=== PATIENT | female | born 1950 | race Caucasian/White ===

== ENCOUNTER → 2023-05-11 15:54 | Outpatient (REF) | payer MEDICARE, OTHER, SELFPAY | LOC: HWWDC 15:54 | PROVIDERS: ATTENDING PHYSICIAN Obstetrics & Gynecology; FAMILY PHYSICIAN Internal Medicine | DX: Z12.31 Encounter for screening mammogram for malignant neoplasm of breast (principal) | CPT/HCPCS: 77063; 77067 ==

== ENCOUNTER → 2023-09-26 06:30 | Day surgery (SDC) | payer MEDICARE, OTHER, SELFPAY | LOC: GI 06:30 | PROVIDERS: ATTENDING PHYSICIAN Internal Medicine | DX: Z12.11 Encounter for screening for malignant neoplasm of colon (principal); K64.9 Unspecified hemorrhoids; K63.89 Other specified diseases of intestine; D12.3 Benign neoplasm of transverse colon; D12.5 Benign neoplasm of sigmoid colon; Z86.010 Personal history of colon polyps | CPT/HCPCS: 45385; 45380; 88305 ==

== ENCOUNTER 2023-11-24 21:42 | Emergency (ER) | payer MEDICARE, OTHER, SELFPAY ==
[2023-11-24 21:47] VITALS: BP 138/70
--- NOTE | 2023-11-24 22:05 | ED.GENMED ---
History of Present Illness
General
Chief Complaint: Heart Rate Problem
Time Seen by Provider: 11/24/23 22:05
History of Present Illness
History of Present Illness:
TIME OF INITIAL ENCOUNTER: 10:20 PM
HPI: While in the car, the patient had palpitations associated with some lightheadedness. She is compliant with taking Coreg 20 mg extended release twice daily. She had no chest pain. She has a history of Takotsubo cardiomyopathy after scuba
diving a few years ago.
EXAM:
GENERAL: Well appearing in no distress
HEENT: Moist oral mucosa
CARDIOVASCULAR: No murmurs, normal heart rate, regular rhythm, No chest wall tenderness
PULMONARY: No respiratory distress, breath sounds are clear and equal
ABDOMEN: Soft with no peritoneal signs, no tenderness
NEUROLOGIC: Excellent strength all extremities, no coordination deficits
PSYCHIATRIC: Appropriate mental status, normal insight and judgement
EXTREMITIES: Nontender, no edema, moves all extremities equally
SKIN: No rash, no lesions
NUMBER AND COMPLEXITY OF PROBLEMS ADDRESSED AT THE ENCOUNTER
� Chronic conditions affecting care: Dr. Coleman cardiomyopathy, high blood pressure
� Acute Exacerbation and/or Progression of Chronic Illness: This is an acute problem
� Differential Diagnosis includes: PVCs, PACs, atrial dysrhythmia, ventricular dysrhythmia
AMOUNT AND/OR COMPLEXITY OF DATA TO BE REVIEWED AND ANALYZED
� I performed an independent evaluation of and my interpretation is:
EKG: Sinus 88, frequent monomorphic PVCs
CT:
X-rays:
Laboratory Studies: CBC and chemistries including magnesium unremarkable
Other:
� Review of other/old records: Patient had colonoscopy in 2023 and was admitted with bilateral acute cerebral infarcts in 2018
� Clinical information was obtained by an independent historian: Spoke to the at bedside
� Prescriptions/Medications Considered but not given:
� Further testing considered but not performed:
RISK OF COMPLICATIONS AND/OR MORBIDITY OR MORTALITY OF PATIENT MANAGEMENT
� Social determinants of health affecting care: Lives at home
� Discussion with other providers:
� Escalation of care including admission/observation vs risk of discharge considered: After 5 mg of IV Lopressor, much less PVCs. She is to follow-up with their cardiology or her manager social media.
ANY OTHER UPDATES:
10:30 PM: There has been some decrease in ventricular ectopy before any additional beta-shaun was given. She has not taken her evening dose of beta-shaun yet.
12:10 AM: The patient no longer senses any significant amount of PVCs. Occasional PVCs are noted on the monitor currently but markedly less than earlier.
Past History
Past History
ED Past Medical History: HTN
ED Past Surgical History: Gynecological
Social History
Tobacco: Non-smoker
Alcohol: Occasional
Drug: None
Personal:
Living: with family
Employment: Retired
Phy Exam
Physical Exam
Physical Exam:
See HPI
Course
Orders/Labs/Results
Orders:
Orders
11/24/23 21:42
ECG [Electrocardiogram (*1)] Urgent
Reason for Study: Palpitations
11/24/23 21:43
EKG- Treatment ONCE
11/24/23 22:28
Basic Metabolic Panel Urgent
Complete Blood Count/With Diff Urgent
Free T4 Urgent
Magnesium Urgent
TSH Reflex To Free T4 Urgent
11/24/23 22:43
Metoprolol [Lopressor] 5 mg IV NOW STA
Abnormal Lab Results
11/24/23
22:28
RBC 4.18 L 10^6/uL
(4.20-5.40)
MPV 10.5 H fL
(7.4-10.4)
Absolute Monos (auto) 0.8 H 10^3/uL
(0.1-0.6)
Monocytes % 9.5 H %
(1.7-9.3)
Carbon Dioxide 32 H mmol/L
(22-30)
Glucose 102 H mg/dl
(70-99)
TSH (Reflex) 5.48 H uIU/ml
(0.47-4.68)
11/24/23 22:28
11/24/23 22:28
Vital Signs
Initial and Last Documented VS:
Initial Vital Signs
Temp Pulse Resp BP Pulse Ox
97.8 F 84 22 138/70 98
11/24/23 21:47 11/24/23 21:47 11/24/23 21:47 11/24/23 21:47 11/24/23 21:47
Last Documented Vital Signs
Temp Pulse Resp BP Pulse Ox
97.8 F 72 14 130/69 98
11/24/23 21:47 11/25/23 00:00 11/25/23 00:00 11/25/23 00:00 11/25/23 00:00
*Critical Care Note
Total Time (30-74mins, 75-104mins- exclusive of procedures): Not Applicable
ED Attending Note
-
Portions of this chart may have been created with voice recognition software.� Occasional wrong word or��sound alike� substitutions may have occurred due to the inherent limitations of voice recognition software.
Discharge Plan
Departure
Patient Disposition: Home (Routine Discharge)
Date of Disposition: 11/25/23
Time of Disposition: 00:10
Patient with high blood pressure during this ER visit?: Yes
Discharge Problem:
Symptomatic PVCs
Instructions: Ventricular premature beats
Prescriptions:
No Action
estradiol [Estring] 1 VAG.RING ring
1 vag.ring VG .3MONTHS
carvedilol phosphate 20 MG capsule, ER multiphase 24 hr
20 mg PO BID
sennosides [senna] 1 TABLET tablet
25 mg PO BID
aspirin 81 MG tablet,delayed release (DR/EC)
81 mg PO DAILY
calcium carbonate-vitamin D3 [Calcium 600 + D(3)] 1 EACH tablet
1 ea PO BID
multivitamin with folic acid [Tab-A-Lucila] 1 TABLET tablet
1 tab PO DAILY
levocetirizine [Xyzal] 5 MG tablet
5 mg PO DAILY
atorvastatin 80 MG tablet
40 mg PO QPM
Referrals:
Zhao Flores MD [Active] - Follow up in 2-3 days
Velasquez Plummer MD [Family Provider] -
Activity Restrictions/Additional Instructions:
Follow-up either with Dr. Plummer or with Dr. Flores. On your initial EKG you had 4 PVCs chest on the EKG. He also had a lot of PVCs on the monitor. We ended up giving you a dose of 5 mg of IV Lopressor. There seems to be less PVCs afterward and
your blood pressure and heart rate remain normal. Take your normal dose of carvedilol when you get home. Thyroid testing is normal, electrolytes and other basic blood work are normal. Return here if worse or other concerns.
Interventions
Interventions:
*Risk Screen - Suicide Last Done: 11/24/23 21:47
*General Assessment Last Done: 11/24/23 22:25
*Neglect/Abuse Screening Last Done: 11/24/23 21:47
ED- Fall Risk Assessment Last Done: 11/24/23 22:25
*ED COVID-19 Vaccine History Last Done: 11/24/23 22:25
ED- Cardiac Assessment Last Done: 11/24/23 22:26
ED- Pulmonary Assessment Last Done: 11/24/23 22:27
Discharge Date and Time
Print Language: INDONESIAN
[2023-11-24 22:20] VITALS: BP 165/88
[2023-11-24 22:25] VITALS: BMI 26.1
[2023-11-24 22:52] LABS: Blood Urea Nitrogen 17 mg/dl (7-17); Carbon Dioxide 32 mmol/L (22-30); Chloride 103 mmol/L (98-107); Estimated Creatinine Clearance 71 ml/min; Glucose 102 mg/dl (70-99); Magnesium 2.1 mg/dl (1.6-2.3); Potassium 3.8 mmol/L (3.5-5.1); Sodium 143 mmol/L (135-145); eGFR > 60.00
[2023-11-24] MEDS: LOPRESSOR 5 MG IV (22:55)
[2023-11-24 23:00] VITALS: BP 165/82
[2023-11-24 23:08] LABS: % Basophils 1.6 % (0-2); % Eosinophils 4.3 % (0-6); % Immature Granulocytes 0.4 % (0-0.5); % Monocytes 9.5 % (1.7-9.3); % Neutrophils 59.2 % (42.2-75.2); Absolute Basophils 0.1 10^3/uL (0-0.2); Absolute Eosinophils 0.4 10^3/uL (0-0.7); Absolute Lymphocytes 2.1 10^3/uL (1.2-3.4); Absolute Monocytes 0.8 10^3/uL (0.1-0.6); Absolute Neutrophils 5.1 10^3/uL (1.4-6.5); Hematocrit 37.8 % (37.0-47.0); Hemoglobin 12.7 g/dL (12.0-16.0); Mean Corp Hgb Conc. 33.6 g/dL (33.0-37.0); Mean Corpuscular Hgb 30.4 pg (27.0-31.0); Mean Corpuscular Volume 90.4 fL (81.0-99.0); Mean Platelet Volume 10.5 fL (7.4-10.4); Nucleated Red Blood Cells % 0 %; Platelet Count 273 10^3/uL (130-400); Red Blood Cell Count 4.18 10^6/uL (4.20-5.40); Red Cell Dist. Width 13.1 % (11.5-14.5); White Blood Cell Count 8.6 10^3/uL (4.8-10.8)
[2023-11-24 23:22] LABS: TSH Reflex To Free T4 5.48 uIU/ml (0.47-4.68)
[2023-11-24 23:51] LABS: Free T4 0.92 ng/dl (0.78-2.19)
[2023-11-25] VITALS: BP 130/69
== END 2023-11-25 00:20 | disposition home or self-care (01) ==
LOC: EMR 21:42
PROVIDERS: EMERGENCY PHYSICIAN Emergency Medicine; FAMILY PHYSICIAN Internal Medicine
DX: I49.3 Ventricular premature depolarization (principal); R42 Dizziness and giddiness; I10 Essential (primary) hypertension; I51.81 Takotsubo syndrome; Z79.899 Other long term (current) drug therapy; Z79.82 Long term (current) use of aspirin
CPT/HCPCS: 99284; 96374; 80048; 83735; 84439; 84443; 85025; 93005

== ENCOUNTER → 2023-12-10 13:38 | Outpatient (REF) | payer MEDICARE, OTHER, SELFPAY ==
[2023-12-10 16:40] LABS: TSH Reflex To Free T4 2.38 uIU/ml (0.47-4.68)
== END ==
LOC: HWLAB 13:38
DX: I49.3 Ventricular premature depolarization (principal); I10 Essential (primary) hypertension
CPT/HCPCS: 36415; 84443

== ENCOUNTER → 2023-12-31 12:52 | Outpatient (REF) | payer MEDICARE, OTHER, SELFPAY | LOC: HWRCS 12:52 | PROVIDERS: FAMILY PHYSICIAN Internal Medicine | DX: I49.3 Ventricular premature depolarization (principal) | CPT/HCPCS: 93306 ==

== ENCOUNTER → 2024-05-28 13:32 | Outpatient (REF) | payer MEDICARE, OTHER, SELFPAY | LOC: HWWDC 13:32 | PROVIDERS: ATTENDING PHYSICIAN Internal Medicine | DX: Z12.31 Encounter for screening mammogram for malignant neoplasm of breast (principal) | CPT/HCPCS: 77063; 77067 ==

== ENCOUNTER 2024-09-22 23:33 | Emergency (ER) | payer MEDICARE, OTHER, SELFPAY ==
[2024-09-22 23:37] VITALS: BP 180/88
[2024-09-23 00:47] VITALS: BMI 26.6
--- NOTE | 2024-09-23 02:38 | ED.GENMED ---
History of Present Illness
General
Chief Complaint: Musculo-Skeletal Complaint
Source: patient and spouse
Time Seen by Provider: 09/23/24 01:53
History of Present Illness
History of Present Illness:
Note:
CHIEF COMPLAINT(S)
Left shoulder pain following a fall.
HISTORY OF PRESENT ILLNESS
The patient is a 74-year-old female who presented with left shoulder pain after slipping while exiting her camper. She reported that her bottom landed on the bottom shelf, while her elbow hit the shelf above it. Initially, she thought her elbow was
injured, but began to feel shoulder pain that gradually increased in severity. She noted that the pain became more pronounced the following morning. She denied chest or abdominal pain. She reported pre-existing neck problems, but stated that there
were no new or additional neck issues today. The shoulder was noted to be swollen with pain localized primarily in the posterior aspect. The patient stated, 'If I had to put a finger on it, Id put it right there.'
PHYSICAL EXAM
- General: Alert, no acute distress.
- Skin: Warm, dry.
- Head: Normocephalic, atraumatic.
- Neck: Supple, trachea midline.
- Eye, Ears, Nose, Mouth, and Throat: Oral mucosa moist.
- Cardiovascular: Normal peripheral perfusion, no edema.
- Respiratory: Respirations are non-labored.
- Gastrointestinal: Abdomen nondistended.
- Musculoskeletal: Left shoulder with limited range of motion due to pain. No tenderness in the clavicle or acromioclavicular joint. Left upper extremity is neurovascularly intact with good distal pulses. Elbow with normal range of motion but noted
moderate tenderness.
- Neurological: Alert and oriented to person, place, time, and situation, no focal neurological deficit observed.
- Psychiatric: Cooperative, appropriate mood & affect.
PROBLEM LIST
Acute:
1. Non-displaced fracture of the head of the humerus.
2. Left shoulder pain.
PLAN
- The patient is to be placed in a shoulder sling to immobilize the left shoulder while healing occurs.
- Advised to contact the provider performing the colonoscopy to discuss possibly rescheduling if positioning is an issue, particularly as the procedure is routine.
DIFFERENTIAL DIAGNOSIS
The Differential Diagnosis includes, in no particular order and is not limited to:
1. Non-displaced fracture of the humerus
2. Rotator cuff tear
3. Shoulder dislocation
4. Bursitis
5. Tendonitis
6. Soft tissue injury
7. Contusion
8. Acromioclavicular joint sprain
9. Glenohumeral joint arthritis
10. Cervical radiculopathy
Disposition:
SUMMARY OF ENCOUNTER
The patient, a 74-year-old female, presented to the emergency department with left shoulder pain following a fall while exiting her camper. Physical examination suggested a non-displaced fracture of the proximal humerus. She reported pain that was
more intense the morning after her fall. A shoulder sling was applied to immobilize the area and minimize discomfort.
DISPOSITION
Discharge with a referral to orthopedics for follow-up.
PLAN
The patient is to wear a shoulder sling for immobilization and comfort. Referral to an payer specialist for further evaluation and management of the non-displaced fracture has been made.
PATIENT EDUCATION AND COUNSELING
The patient was advised about the importance of keeping the arm immobilized in the sling for proper healing, to monitor for changes in sensation or circulation in the left arm, and to avoid movements that could exacerbate the injury.
FOLLOW-UP INSTRUCTIONS
The patient was instructed to arrange follow-up care with [facility] for further evaluation and management of the humeral fracture.
MEDICAL DECISION MAKING
- Number and Complexity of Problems Addressed:
Chronic conditions affecting care include pre-existing neck problems. Differential Diagnosis: Non-displaced fracture of the humerus, rotator cuff tear, shoulder dislocation, bursitis, tendonitis, soft tissue injury, contusion, acromioclavicular
joint sprain, glenohumeral joint arthritis, cervical radiculopathy.
- Data:
Category 2
My independent interpretation of the situation identified a non-displaced fracture of the proximal humerus based on physical examination findings.
- Risk:
Prescription medication management considered but deferred, and outpatient orthopedic follow-up was arranged.
DIAGNOSIS
Non-displaced proximal humerus fracture (ICD-10: S42.292A).
Past History
Past History
ED Past Medical History: HTN
ED Past Surgical History: Gynecological
Social History
Tobacco: Non-smoker
Alcohol: Occasional
Drug: None
Personal:
Living: with family
Employment: Retired
Phy Exam
Physical Exam
Physical Exam:
.
Course
Orders/Labs/Results
Orders:
Orders
09/22/24 23:39
Shoulder, Left, Trauma CR [CR Shoulder, Trauma - Left] Urgent
Comment:
Reason For Exam: FALL
09/23/24 02:14
Sling Left-Treatment ONCE
Vital Signs
Initial and Last Documented VS:
Initial Vital Signs
Temp Pulse Resp BP Pulse Ox
98.5 F 74 18 180/88 100
09/22/24 23:37 09/22/24 23:37 09/22/24 23:37 09/22/24 23:37 09/22/24 23:37
Last Documented Vital Signs
Temp Pulse Resp BP Pulse Ox
98.5 F 74 18 180/88 100
09/22/24 23:37 09/22/24 23:37 09/22/24 23:37 09/22/24 23:37 09/22/24 23:37
*Pulse Oximetry
SaO2: 100
Oxygen Mode of Delivery: Room air
Patient hypoxic: no
*Critical Care Note
Total Time (30-74mins, 75-104mins- exclusive of procedures): Not Applicable
ED Attending Note
-
Portions of this chart may have been created with voice recognition software.� Occasional wrong word or��sound alike� substitutions may have occurred due to the inherent limitations of voice recognition software.
Discharge Plan
Departure
Patient Disposition: Home (Routine Discharge)
Date of Disposition: 09/23/24
Time of Disposition: 02:38
Patient with high blood pressure during this ER visit?: Yes
Discharge Problem:
Fracture of proximal end of left humerus
Instructions: How to Use a Shoulder Sling, Shoulder or upper arm fracture, BLOOD PRESSURE
Prescriptions:
No Action
estradiol [Estring] 1 VAG.RING ring
1 vag.ring VG .3MONTHS
carvedilol phosphate 20 MG capsule, ER multiphase 24 hr
20 mg PO BID
sennosides [senna] 1 TABLET tablet
25 mg PO BID
aspirin 81 MG tablet,delayed release (DR/EC)
81 mg PO DAILY
calcium carbonate-vitamin D3 [Calcium 600 + D(3)] 1 EACH tablet
1 ea PO BID
multivitamin with folic acid [Tab-A-Lucila] 1 TABLET tablet
1 tab PO DAILY
levocetirizine [Xyzal] 5 MG tablet
5 mg PO DAILY
atorvastatin 80 MG tablet
40 mg PO QPM
Referrals:
Mookie Olguin MD [Active, Orthopedics]
Velasquez Plummer MD [Family Provider, Internal Medicine]
Activity Restrictions/Additional Instructions:
Please see orthopedics in the next 1 week for follow-up and reevaluation. Use ibuprofen as needed for pain control and ice your injured shoulder. Return immediately for numbness, tingling, worsening pain or any other concerns.
Interventions
Interventions:
*Risk Screen - Suicide Last Done: 09/22/24 23:37
*General Assessment Last Done: 09/23/24 00:47
*Neglect/Abuse Screening Last Done: 09/22/24 23:37
*ED- Fall Risk Assessment Last Done: 09/23/24 00:47
*ED COVID-19 Vaccine History Last Done: 09/23/24 00:47
ED-Musculoskeletal Assessment Last Done: 09/23/24 00:49
Discharge Date and Time
Print Language: PERSIAN
[2024-09-23] MEDS: TYLENOL 1000 MG PO (03:02)
[2024-09-23 03:15] VITALS: BP 134/71
== END 2024-09-23 03:15 | disposition home or self-care (01) ==
LOC: EMR 23:33
PROVIDERS: EMERGENCY PHYSICIAN Emergency Medicine; FAMILY PHYSICIAN Internal Medicine
DX: S42.202A Unspecified fracture of upper end of left humerus, initial encounter for closed fracture (principal); W19.XXXA Unspecified fall, initial encounter; I10 Essential (primary) hypertension
CPT/HCPCS: 99283; 73030

== ENCOUNTER 2024-12-15 06:24 | Day surgery (SDC) | payer MEDICARE, OTHER, SELFPAY | END 2024-12-15 10:12 | disposition home or self-care (01) | LOC: GI 06:24 | PROVIDERS: ATTENDING PHYSICIAN Internal Medicine; FAMILY PHYSICIAN Internal Medicine | DX: Z12.11 Encounter for screening for malignant neoplasm of colon (principal); D12.3 Benign neoplasm of transverse colon; D12.4 Benign neoplasm of descending colon; K63.89 Other specified diseases of intestine; K64.9 Unspecified hemorrhoids; Z86.0101 Personal history of adenomatous and serrated colon polyps | CPT/HCPCS: 45385; 45380; 88305 ==